=== PATIENT | male | born 1995 | race Caucasian/White ===

== ENCOUNTER 2025-04-21 01:27 | Emergency (ER) | payer MEDICAID ==
[~2025-04-21] VITALS: Ht 182.9 cm; Wt 87.7 kg
[2025-04-21 01:35] VITALS: BP 123/84; PULSE 104; RESP 15; TEMP 96.3; O2SAT 96
== END 2025-04-21 02:32 | disposition left against medical advice (07) ==
LOC: ER 01:28
DX: Z00.8 Encounter for other general examination (principal); Z53.21 Procedure and treatment not carried out due to patient leaving prior to being seen by health care provider